=== PATIENT | male | born 1990 | race Native Hawaiian/Other Pacific Islander ===

== ENCOUNTER 2019-03-13 16:00 | Emergency (ER) | payer OTHER ==
[~2019-03-13] VITALS: Ht 175.3 cm; Wt 68.0 kg
[2019-03-13 19:54] VITALS: BP 115/82; TEMP 98.3
== END 2019-03-13 19:57 | disposition home or self-care (01) ==
LOC: ED 16:00
PROC: 0HQGXZZ Repair Left Hand Skin, External Approach (ICD-10-PCS; principal; 2019-03-13)
DX: S61.412A Laceration without foreign body of left hand, initial encounter (principal); W45.8XXA Other foreign body or object entering through skin, initial encounter; Y92.69 Other specified industrial and construction area as the place of occurrence of the external cause
CPT/HCPCS: 90471; 90715; 99282

== ENCOUNTER 2019-03-22 15:53 | Emergency (ER) | payer OTHER ==
[~2019-03-22] VITALS: Ht 175.3 cm; Wt 72.6 kg
[2019-03-22 16:00] VITALS: BP 140/80; TEMP 99.1
== END 2019-03-22 16:40 | disposition home or self-care (01) ==
LOC: ED 15:53
DX: Z48.02 Encounter for removal of sutures (principal)

== ENCOUNTER 2019-09-13 00:28 | Emergency (ER) | payer OTHER ==
[~2019-09-13] VITALS: Ht 175.3 cm; Wt 72.6 kg
[2019-09-13] MEDS ORDERED: ZYRTEC ALLERGY10 M1 PO (00:36)
[2019-09-13 01:24] LABS: PLATELET COUNT 293 K/uL (142-355)
[2019-09-13 01:27] LABS: POTASSIUM 3.3 mmol/L (3.6-5.2)
[2019-09-13 03:15] VITALS: BP 136/71; TEMP 97
== END 2019-09-13 03:15 | disposition home or self-care (01) ==
LOC: ED 00:28
PROVIDERS: Emergency Medicine
DX: R51 Headache (principal); J40 Bronchitis, not specified as acute or chronic
CPT/HCPCS: 80053; 80307; 85027; 96374; 96375; 99284; J2175; J2405

== ENCOUNTER 2020-01-30 10:41 | Outpatient (CLI) | payer BC ==
[~2020-01-30 10:41] MED LIST: ZYRTEC ALLERGY10 M1 PO
== END 2020-01-30 19:21 | disposition home or self-care (01) ==
LOC: RAD 10:41
DX: M54.12 Radiculopathy, cervical region (principal); M54.6 Pain in thoracic spine

== ENCOUNTER 2022-11-15 03:58 | Emergency (ER) | payer OTHER ==
[~2022-11-15] VITALS: Ht 175.3 cm; Wt 68.0 kg
[2022-11-15 04:00] VITALS: BP 150/74; TEMP 98.3
[2022-11-15 04:34] LABS: PLATELET COUNT 191 K/uL (142-355)
[2022-11-15 04:43] LABS: POTASSIUM 3.7 mmol/L (3.6-5.2)
== END 2022-11-15 06:55 | disposition home or self-care (01) ==
LOC: ED 03:58
PROVIDERS: Emergency Medicine
DX: K52.89 Other specified noninfective gastroenteritis and colitis (principal); K29.60 Other gastritis without bleeding
CPT/HCPCS: 36415; 80053; 81002; 85027; 96374; 96375; 99284; J1885; J2405; Q9963